=== PATIENT | male | born 1960 | race Caucasian/White ===

== ENCOUNTER 2017-11-20 10:29 | Emergency (ER) | payer OTHER ==
[~2017-11-20] VITALS: Ht 165.1 cm; Wt 105.8 kg
[~2017-11-20 10:29] MED LIST: AMOX500T PO; COUM5TAB PO; DIOV80TA4 PO; PIOG15 PO
[2017-11-20 10:35] VITALS: BP 131/73; PULSE 81; RESP 18; TEMP 97.9; O2SAT 96
--- NOTE | 2017-11-20 10:53 | PD ---
HPI Chief Complaint: Edema Time Seen by Provider: 10:49 Travel History International Travel<30 days: No Contact w/Intl Traveler<30days: No Traveled to known affect area: No History of Present Illness HPI 56-year-old male patient presents to the ER today, had history of DVT in the past, currently on Plavix, here because of right calf pain this been going on for several days. He denies any recent long trips. He denies any shortness of breath or other issues. He is concerned about possible DVT considering his history. Modifying Factors: None Associated Signs & Symptoms: Pain right calf pain Risk Factors: History of DVT PFSH Past Medical History Hx Anticoagulant Therapy: Yes Cardiovascular Problems: Yes Diabetes: Yes (DM II) Diminished Hearing: No Deep Vein Thrombosis: Yes (LOWER LEFT LEG) Gastrointestinal Disorders: Yes (BILAT INGUINAL HERNIAS, VENTRAL HERNIA) Hiatal Hernia: Yes Hypertension: Yes Past Surgical History Abdominal Surgery: Yes (UMBILICAL HEARNIA REPAIR) Oral Surgery: Yes (WISDOM TEETH) Tonsillectomy: Yes Other Surgery: Yes (UVELA, REMOVED DUE TO CHRONIC VOMITTING) Social History Alcohol Use: No Tobacco Use: Yes (QUIT 1999) Substance Use: No Allergies-Medications (Allergen,Severity, Reaction): Coded Allergies: No Known Allergies (Verified Adverse Reaction, Unknown, 11/20/17) Reported Meds & Prescriptions Reported Meds & Active Scripts Active Reported Tradjenta (Linagliptin) 5 Mg Tab 5 Mg PO DAILY Valsartan 80 Mg Tab 80 Mg PO DAILY Clopidogrel (Clopidogrel Bisulfate) 75 Mg Tab 75 Mg PO DAILY Review of Systems Except as stated in HPI: all other systems reviewed are Neg Physical Exam Narrative GENERAL: Well-developed middle-aged male patient currently in mild distress. Awake and oriented 3. SKIN: Focused skin assessment warm/dry. HEAD: Atraumatic. Normocephalic. EYES: Pupils equal and round. No scleral icterus. No injection or drainage. ENT: No nasal bleeding or discharge. Mucous membranes pink and moist. NECK: Trachea midline. No JVD. Supple. CARDIOVASCULAR: Regular rate and rhythm. No murmur appreciated. RESPIRATORY: No accessory muscle use. Clear to auscultation. Breath sounds equal bilaterally. GASTROINTESTINAL: Abdomen soft, non-tender, nondistended. Hepatic and splenic margins not palpable. MUSCULOSKELETAL: No obvious deformities. No clubbing. No cyanosis. No edema. EXTREMITIES: No clubbing, cyanosis, or edema. No joint tenderness, effusion, or edema noted. Mild right calf tenderness. NEUROLOGICAL: Awake and alert. No obvious cranial nerve deficits. Motor grossly within normal limits. Normal speech. PSYCHIATRIC: Appropriate mood and affect; insight and judgment normal. Data Data Last Documented VS Vital Signs Date Time Temp Pulse Resp B/P (MAP) Pulse Ox O2 Delivery O2 Flow Rate FiO2 11/20/17 11:15 16 11/20/17 10:35 97.9 81 131/73 (92) 96 Orders Orders Basic Metabolic Panel (Bmp) (11/20/17 10:49) Prothrombin Time / Inr (Pt) (11/20/17 10:49) Act Partial Throm Time (Ptt) (11/20/17 10:49) Us Leg Venous Doppler (11/20/17 10:49) Ed Discharge Order (11/20/17 12:13) Rivaroxaban (Xarelto) (11/20/17 12:15) Labs Laboratory Tests Test 11/20/17 11:15 Prothrombin Time 10.4 SEC Prothromb Time International Ratio 1.0 RATIO Activated Partial Thromboplast Time 25.4 SEC Blood Urea Nitrogen 15 MG/DL Creatinine 0.94 MG/DL Random Glucose 286 MG/DL Calcium Level 8.6 MG/DL Sodium Level 138 MEQ/L Potassium Level 4.0 MEQ/L Chloride Level 104 MEQ/L Carbon Dioxide Level 27.0 MEQ/L Anion Gap 7 MEQ/L Estimat Glomerular Filtration Rate 83 ML/MIN [facility] Medical Decision Making Medical Screen Exam Complete: Yes Emergency Medical Condition: Yes Medical Record Reviewed: Yes Interpretation(s) Last 24 hours Impressions Lower Extremity Ultrasound 11/20/17 1049 Signed Impressions: Service Date/Time: Monday, November 20, 2017 10:57 - CONCLUSION: Right calf DVT present in the anterior tibial artery. Otherwise negative Trent Prasad MD Laboratory Tests Test 11/20/17 11:15 Random Glucose 286 MG/DL (74-106) Estimat Glomerular Filtration Rate 83 ML/MIN (>89) Differential Diagnosis Right calf pains: Muscle strain versus muscle spasms versus DVT Narrative Course Ultrasound shows DVT. Patient is not having any respiratory issues and I am not suspecting a PE in this case. His lab work did not show renal impairment. He is on Plavix for DVT also, will discontinue for now. At this point, my plan would be to put him on Xarelto and have him follow-up with primary care doctor. Return for any worsening in pain, swelling, shortness of breath, or new issues as needed. The plan has been discussed with him he states understanding. Diagnosis Primary Impression: Right leg DVT Med/Other Pt SpecificInfo: Prescription(s) given, Med Stopped (Plavix) Scripts Rivaroxaban (Xarelto) 15 Mg Tab 15 MG PO Q12HR for Blood Clot Prevention for 21 Days, TAB 0 Refills Prov: Ginny Catalan MD 11/20/17 Disposition: DISCHARGE HOME Condition: Stable Ginny Catalan MD Nov 20, 2017 10:53
[2017-11-20] MEDS ORDERED: TRAD5TAB PO (11:22)
[2017-11-20] MEDS ORDERED: VALS1TAB64 PO (11:22)
[2017-11-20] MEDS ORDERED: CLOP75TA PO (11:22)
--- NOTE | 2017-11-20 11:28 | RADRPT ---
EXAM DATE/TIME: 11/20/2017 10:57 [facility] COMPARISON: No previous studies available for comparison. INDICATIONS : Right calf pain. MEDICAL HISTORY : Hypertension. Deep venous thrombosis. Diabetes mellitus type 2. Anticoagulant therapy. Anticoagula nt therapy, Plavix. SURGICAL HISTORY : Tonsillectomy. Umbilical hernia repair. Uvula removed. Orthopedic surgery, left calf. ENCOUNTER: Initial ACUITY: 1 day PAIN SCORE: 5/10 LOCATION: Right leg. TECHNIQUE: Venous ultrasound of the leg was performed from the inguinal ligament to the proximal calf. Real-malou e, color Doppler and spectral tracing, compression and augmentation techniques were used. FINDINGS: There is normal compressibility of the deep venous system from the inguinal region to the knee. No e chogenic clot is seen in the lumen of the common femoral, femoral, popliteal, and posterior tibial ve ins. There is occlusive thrombus present in the anterior tibial artery. CONCLUSION: Right calf DVT present in the anterior tibial artery. Otherwise negative Trent Prasad MD on November 20, 2017 at 11:25 Board Certified Radiologist. This report was verified electronically.
[2017-11-20 11:46] LABS: CALCIUM 8.6 MG/DL (8.5-10.1)
[2017-11-20 11:48] LABS: PROTHROMBIN TIME - PATIENT 10.4 SEC (9.8-11.6)
[2017-11-20 11:50] LABS: CREATININE 0.94 MG/DL (0.60-1.30)
[2017-11-20] MEDS ORDERED: RIVAROXABAN 15 MG TAB PO ONE (12:15)
[2017-11-20] MEDS ORDERED: XARE15TA PO (12:16)
[2017-11-20 12:49] VITALS: BP 145/84
== END 2017-11-20 12:51 | disposition home or self-care (01) ==
LOC: PHED 10:29
DX: I82.441 Acute embolism and thrombosis of right tibial vein (principal); E11.9 Type 2 diabetes mellitus without complications; I10 Essential (primary) hypertension; Z79.01 Long term (current) use of anticoagulants; Z79.84 Long term (current) use of oral hypoglycemic drugs; Z86.718 Personal history of other venous thrombosis and embolism; Z86.79 Personal history of other diseases of the circulatory system; Z87.39 Personal history of other diseases of the musculoskeletal system and connective tissue
CPT/HCPCS: 80048; 85610; 85730; 93971; 99284